=== PATIENT | female | born 1955 | race Two or more races ===

== ENCOUNTER 2017-08-24 00:05 | Inpatient (IN) | payer OTHER ==
[~2017-08-24] VITALS: Ht 160 cm; Wt 52.8 kg
[~2017-08-24 00:05] MED LIST: ASCO-317 PO; CAPE500T15 PO; CHOL400T26 PO; MAGN500C16 PO; ONDA8TAB6 PO; SERT25TA5 PO; SIMV20TA6 PO; THIO50TA PO; [UNRECOGNIZED DRUG - CODE] PO; [UNRECOGNIZED DRUG - OTHER] IM
--- NOTE | 2017-08-24 00:05 | NUR ---
"COUGH/FEVER; JUST FINISHED TAKING 2ND DOSE OF Z-PACK" W/ AUDIBLE CONGESTION. NO SOB NOTED WITH NO PAIN. VSS NAD WILL CONTINUE TO MONITOR FOR NAY CHANGES DURING THE SHIFT
[2017-08-24] MEDS ORDERED: IV NS 0.9% 1,000 ML BAG IV ONE (00:30)
[2017-08-24] MEDS ORDERED: MORPHINE SULFATE INJ 2 MG/ML DISP.SYRIN IV ONE (00:30)
[2017-08-24] MEDS ORDERED: ONDANSETRON HCL/PF 4 MG/2 ML VIAL IVP ONE (00:30)
--- NOTE | 2017-08-24 00:52 | NUR ---
BLOOD SENT TO LAB
[2017-08-24 01:03] LABS: BASOPHILS # (AUTO) 0.1 /CMM (0.0-0.2); BASOPHILS % (AUTO) 0.9 % (0.0-2.0); EOSINOPHILS % (AUTO) 0.3 % (0.0-6.0); HEMATOCRIT 30 % (33-45); HEMOGLOBIN 10.1 g/dL (11.5-14.8); LYMPHOCYTES % (AUTO) 16.8 % (20.0-44.0); MEAN CORPUSCULAR HEMOGLOBIN 35 PG (26.0-33.0); MEAN CORPUSCULAR HGB CONC 34 g/dl (31.0-36.0); MEAN CORPUSCULAR VOLUME 102 fL (82-100); MONOCYTES # (AUTO) 1.1 /CMM (0.1-1.30); MONOCYTES % (AUTO) 18.7 % (2.0-12.0); NEUTROPHILS # (AUTO) 3.6 /CMM (1.8-8.9); NEUTROPHILS % (AUTO) 63.3 % (43.0-81.0); PLATELET COUNT (AUTO) 54 /CMM (150-450); RED BLOOD CELL COUNT(AUTO) 2.91 MIL/uL (4.0-5.2); WHITE BLOOD COUNT (AUTO) 5.7 K/uL (4.3-11.0)
[2017-08-24 01:20] LABS: TROPONIN I 0.017 ng/mL (0.00-0.056)
[2017-08-24 01:21] LABS: LYMPHOCYTES % (MANUAL) 20 % (16-48); MONOCYTES % (MANUAL) 14 % (0-11.0); NEUTROPHILS % (MANUAL) 66 (42-76)
[2017-08-24 01:24] LABS: ALBUMIN 2.3 g/dL (3.4-5.0); BILIRUBIN,DIRECT 0.5 mg/dL (0.0-0.2); BILIRUBIN,TOTAL 1.1 mg/dL (0.2-1.0); CALCIUM, SERUM 9.4 mg/dL (8.5-10.1); CREATININE 0.9 mg/dL (0.6-1.3); POTASSIUM 3.7 mmol/L (3.5-5.1); TOTAL PROTEIN, SERUM 7.1 g/dL (6.4-8.2)
[2017-08-24] MEDS ORDERED: IV NS 0.9% 500 ML IV ONE (01:27)
[2017-08-24] MEDS ORDERED: CT SWABBABLE VALVE TRANS SET 1 EA INFUS.SET MC ONE (01:27)
[2017-08-24] MEDS ORDERED: IOHEXOL-350 100 ML VIAL IV ONE (01:27)
--- NOTE | 2017-08-24 01:46 | NUR ---
PT OFF TO CT SCAN
[2017-08-24] MEDS ORDERED: PIPERACILLIN /TAZOBACTAM 3.375 G in IV D5W 50 ML IV ONE (03:00)
[2017-08-24] MEDS ORDERED: PIPERACILLIN /TAZOBACTAM 3.375 G VIAL IV ONE (03:12)
--- NOTE | 2017-08-24 04:24 | NUR ---
TELE 323-2
--- NOTE | 2017-08-24 04:40 | NUR ---
GIVE REPORTS TO SRAVANTHI MAYEN.
[2017-08-24] MEDS ORDERED: Z GUARD REMEDY 2 OZ OINT TP PRN (05:00)
[2017-08-24] MEDS ORDERED: MORPHINE SULFATE INJ 2 MG/ML DISP.SYRIN IV PRN (05:00)
[2017-08-24] MEDS ORDERED: MAGNESIUM HYDROXIDE 30 ML UDC PO PRN (05:00)
[2017-08-24] MEDS ORDERED: ACETAMINOPHEN 325 MG TABLET PO PRN (05:00)
[2017-08-24] MEDS ORDERED: ONDANSETRON HCL/PF 4 MG/2 ML VIAL IVP PRN (05:00)
[2017-08-24] MEDS ORDERED: HYDROCODONE/APAP 5/325MG 1 EACH TABLET PO PRN (05:00)
[2017-08-24] MEDS ORDERED: MAG HYDROX/AL HYDROX/SIMETH 30 ML UDC PO PRN (05:00)
--- NOTE | 2017-08-24 05:01 | NUR ---
REPORT GIVEN TO FRIED Addendum: 08/24/17 at 0506 by MARKUS REPORT GIVEN TO MAYEN
[2017-08-24 05:30] VITALS: BP 120/70
[2017-08-24 05:43] VITALS: BP 120/70
[2017-08-24] MEDS ORDERED: AZITHROMYCIN 500 MG in IV D5W 250 ML IV SCH (06:00)
[2017-08-24] MEDS ORDERED: CEFTRIAXONE 1 G VIAL ONE (06:07)
[2017-08-24] MEDS: CEFTRIAXONE 1 G in IV D5W 50 ML IV SCH (06:30)
--- NOTE | 2017-08-24 07:30 | NUR ---
TELE/RN OPENING NOTE PATIENT IN BED AWAKE. ALERT AND ORIENTED X4. RESPIRATION REGULAR AND UNLABORED. DENIES SOB. PAIN AT THIS TIME. LFA G 22 PATENT. BED LOW AND LOCKED. SIDE RAILS UP X2. CALL LIGHT WITHIN REACH. WILL CONTINUE TO MONITOR.
[2017-08-24 08:00] VITALS: BP 137/79
--- NOTE | 2017-08-24 09:48 | NUR ---
TELE/RN NOTE ZITHROMAX NOT DELIVERED FROM PHARM YET. FOLLOW UP CALL TO PHARM IS DONE.
[2017-08-24] MEDS: AZITHROMYCIN 500 MG in IV D5W 250 ML IV SCH (11:24)
[2017-08-24 16:00] VITALS: BP 129/94
--- NOTE | 2017-08-24 18:04 | NUR ---
MS/RN CLOSING NOTE PATIENT ALERT AND ORIENTED X4. RESPIRATION REGULAR AND UNLABORED. DENIES SOB, PAIN AT THIS TIME. THE PATIENT IN NO APPARENT DISTRESS. ABLE TO AMBULATE WITH SUPERVISION. CONTINENT OF BOWEL AND BLADDER. LEFT CHEST PORT-A CATH WITH NO S/S INFECTION AND NO BLEEDING. LFA G 22 PATENT. BED LOW AND LOCKED. SIDE RAILS UP X2. VERBAL CUES PROVIDED TO KEEP SAFETY AWARENESS HIGH. ALL NEEDS ATTENDED AND ANTICIPATED. CALL LIGHT WITHIN REACH. WILL ENDORSE TO CLAIMS SUPERVISOR.
--- NOTE | 2017-08-24 19:25 | NUR ---
RN OPENING NOTES PT AWAKE AND RESTING IN BED. NO COMPLAINTS OF PAIN, DISTRESS OR SOB AT THIS TIME. PT HAS A LEFT CHEST JARETH CATH. PT ALSO HAS A LEFT FA #22 IV, INTACT AND PATENT. PT HAS A SCHEDULED US GUIDED THORACENTESIS IN THE MORNING. PT WILL BE NPO AFTER MIDNIGHT. PT HAS A LEFT FOREARM #22 IV, SL. SAFETY PRECAUTIONS IN PLACE. BED IN LOW, LOCKED POSITION, X2 SIDERAILS UP, CALL LIGHT WITHIN REACH. WILL CONTINUE TO MONITOR.
[2017-08-24 20:00] VITALS: BP 143/83
[2017-08-25] MEDS: CEFTRIAXONE 1 G in IV D5W 50 ML IV SCH (05:21)
--- NOTE | 2017-08-25 06:41 | NUR ---
RN OPENING NOTES PT AWAKE AND RESTING IN BED. NO COMPLAINTS OF PAIN, DISTRESS OR SOB OVERNIGHT. PT HAS A LEFT CHEST JARETH CATH. PT ALSO HAS A LEFT FA #22 IV, INTACT AND PATENT. PT HAS A SCHEDULED US GUIDED THORACENTESIS IN THE MORNING. PT HAS A LEFT FOREARM #22 IV, SL. SAFETY PRECAUTIONS IN PLACE. BED IN LOW, LOCKED POSITION, X2 SIDE RAILS UP, CALL LIGHT WITHIN REACH. WILL ENDORSE TO DAY SHIFT NURSE FOR CONTINUITY OF CARE. Addendum: 08/25/17 at 0643 by COLTEN OCONNOR RN MISTYPED RN CLOSING NOTES
[2017-08-25 07:44] LABS: BASOPHILS % (AUTO) 0.4 % (0.0-2.0); EOSINOPHILS % (AUTO) 0.7 % (0.0-6.0); HEMATOCRIT 27 % (33-45); HEMOGLOBIN 9.4 g/dL (11.5-14.8); LYMPHOCYTES # (AUTO) 0.6 /CMM (0.8-4.8); LYMPHOCYTES % (AUTO) 15.5 % (20.0-44.0); MEAN CORPUSCULAR HEMOGLOBIN 35 PG (26.0-33.0); MEAN CORPUSCULAR HGB CONC 35 g/dl (31.0-36.0); MEAN CORPUSCULAR VOLUME 101 fL (82-100); MONOCYTES # (AUTO) 0.7 /CMM (0.1-1.30); MONOCYTES % (AUTO) 18.1 % (2.0-12.0); NEUTROPHILS # (AUTO) 2.4 /CMM (1.8-8.9); NEUTROPHILS % (AUTO) 65.3 % (43.0-81.0); RDW COEFFICIENT OF VARIATION 17.8 (11.5-15.0); WHITE BLOOD COUNT (AUTO) 3.7 K/uL (4.3-11.0)
[2017-08-25 07:59] LABS: PLATELET COUNT (AUTO) 41 /CMM (150-450)
[2017-08-25 08:00] VITALS: BP 133/91
[2017-08-25 08:03] LABS: BILIRUBIN,TOTAL 0.9 mg/dL (0.2-1.0); CALCIUM, SERUM 9.1 mg/dL (8.5-10.1); CREATININE 0.7 mg/dL (0.6-1.3); MAGNESIUM 1.9 mg/dL (1.8-2.4); PHOSPHORUS 3.8 mg/dL (2.5-4.9); POTASSIUM 3.7 mmol/L (3.5-5.1); TOTAL PROTEIN, SERUM 6.6 g/dL (6.4-8.2)
[2017-08-25 08:07] LABS: THYROID STIMULATING HORMONE 2.927 uIU/mL (0.358-3.74)
--- NOTE | 2017-08-25 08:30 | NUR ---
U/S GUIDED THORACENTESIS HOLD BECAUSE PATIENT'S PLT COUNT IS 41 , AND THERE IS NO INR RESULT FOR THE PATIENT YET.
[2017-08-25 09:27] LABS: EOSINOPHILS % (MANUAL) 1 % (0-4); LYMPHOCYTES % (MANUAL) 15 % (16-48); MONOCYTES % (MANUAL) 14 % (0-11.0); NEUTROPHILS % (MANUAL) 70 (42-76)
[2017-08-25] MEDS: AZITHROMYCIN 500 MG in IV D5W 250 ML IV SCH (10:00)
--- NOTE | 2017-08-25 12:00 | NUR ---
m/s child care centre director: notes received pt in bed resting comfortable with no distress noted. pt for abdominal us and thoracentesis procedure today. pt has been npo since midnight per report. instructed to call for assistance. will continue to monitor.
--- NOTE | 2017-08-25 13:00 | NUR ---
m/s green chain worker: md visit seen and examined by dr. cabrera at this time. pt for thoracentesis, pending inr result. pt aware. npo has been lifted, pt can eat now due to abdominal us cancelled. instructed to call for assistance. will monitor.
--- NOTE | 2017-08-25 14:15 | NUR ---
m/s matrix worker: notes received order from dr. cabrera to Discharge pt in 4 hours after large voulme thoracentesis if feeling well and, able to ambulate. f/u made to lab re: inr pending result, spoke to vinay, stated, "give it a few more, it's still running in the machine."
[2017-08-25 14:22] LABS: INR 0.97 (0.87-1.13)
--- NOTE | 2017-08-25 14:31 | NUR ---
m/s maintenance service supervisor: notes inr resulted and dr. otero (radiologist) notified and made aware.
[2017-08-25 16:00] VITALS: BP 138/84
[2017-08-25] MEDS ORDERED: FUROSEMIDE 20 MG/2 ML VIAL IV ONE (16:00)
--- NOTE | 2017-08-25 17:00 | NUR ---
m/s insurance attorney: notes thoracentesis completed with 1250 of serosanguineous fluid collected and bottles sent to lab for test.
--- NOTE | 2017-08-25 18:15 | NUR ---
cxr resulted: 1. Significantly decreased left pleural effusion, status post interval thoracentesis. Questionable trace left apical pneumothorax. Short interval follow-up chest x-rays is recommended. 2. Persistent trace bilateral pleural effusions.and dr. cabrera was called by radiologist with order to do another xray at 2100 and to call him with result oni. pt made aware.
--- NOTE | 2017-08-25 18:58 | NUR ---
m/s master data analyst: notes received a call from dr. cabrera to do stat cxr at 2000 instead of 2100. pt made aware. order carried out and acknowledged. pt for d'c home tonight if feeling better. pt aware.
--- NOTE | 2017-08-25 19:15 | NUR ---
m/s shipbuilding draftsperson: notes report given to shoshana (rn) for continuity of care. pending repeat chest x-ray at 1999.
--- NOTE | 2017-08-25 19:30 | NUR ---
MS RN OPENING NOTES RECEIVED PT IN BED AWAKE, ALERT, VERBALLY RESPONSIVE. ON ROOM AIR, RESPIRATIONS EVEN, UNLABORED, NO APPARENT DISTRESS NOTED.. DENIES ANY PAIN OR DISCOMFORT AT THIS TIME. IV SITE LT FA INTACT, PATENT. CALL LIGHT WITHIN REACH. AWAITING FOR CHEST X RAY TO BE TAKEN. ATTENDED ALL NEEDS.WILL CONTINUE TO MONITOR ACCORDINGLY.
[2017-08-25 20:00] VITALS: BP 131/83
--- NOTE | 2017-08-25 21:00 | NUR ---
MS MAJOR GENERAL NOTE PT DISCHARGED IN STABLE CONDITION ALERT, AWAKE, VERBALLY RESPONSIVE, ON ROOM AIR, RESPIRATION EVEN, UNLABORED, NO APPARENT DISTRESS NOTED.DENIES ANY PAIN OR DISCOMFORT AT THIS TIME. DISCHARGE INSTRUCTIONS GIVEN TO THE PT, VERBALIZED UNDERSTANDING. IV ACCESS REMOVED,PT TOLERATED WELL, NO BLEEDING NOTED. ATTENDED ALL NEEDS. CHARGE NURSE NOTIFIED, PT LEFT THE HOSPITAL IN STABLE CONDITION ACCOMPANIED BY RN AND FAMILY MEMBERS. ATTENDED ALL PT NEEDS. VS 130/83 P 88, T 98.8, RR 18 O2 SAT 97%.
--- NOTE | 2017-08-25 21:30 | NUR ---
MS RN NOTES RECEIVED RESULT FROM CHEST XRAY- BILATERAL PLEURAL EFFUSION, LT PORT A CATH WITHOUT VISIBLE PNEUMOTHORAX. RELAYED RESULTS TO ISAIAS PATTON NP, OK TO DISCHARGE THE PT. PT ALERT, AWAKE, VERBALLY RESPONSIVE, INSISTING TO BE DISCHARGED.ATTENDED ALL NEEDS.
== END 2017-08-25 22:05 | disposition home or self-care (01) | DRG 597 ==
LOC: ER 00:11 → TELE 04:36 → MED 09:17
PROVIDERS: ADMIT Nurse Practitioner Acute Care; ATTEND Nurse Practitioner Acute Care
PROC: 0W9B3ZZ Drainage of Left Pleural Cavity, Percutaneous Approach (ICD-10-PCS; principal; 2017-08-24)
DX: C50.911 Malignant neoplasm of unspecified site of right female breast (principal); I50.33 Acute on chronic diastolic (congestive) heart failure; J91.0 Malignant pleural effusion; C78.7 Secondary malignant neoplasm of liver and intrahepatic bile duct; C78.01 Secondary malignant neoplasm of right lung; D69.6 Thrombocytopenia, unspecified; E87.2 Acidosis; C78.02 Secondary malignant neoplasm of left lung; C79.89 Secondary malignant neoplasm of other specified sites; J98.11 Atelectasis; C92.10 Chronic myeloid leukemia, BCR/ABL-positive, not having achieved remission; D63.8 Anemia in other chronic diseases classified elsewhere; R74.0 Nonspecific elevation of levels of transaminase and lactic acid dehydrogenase [LDH]; Z90.49 Acquired absence of other specified parts of digestive tract; Z90.710 Acquired absence of both cervix and uterus; Z96.651 Presence of right artificial knee joint; Z79.899 Other long term (current) drug therapy
CPT/HCPCS: 36415; 71045-TC; 76942-TC; 80048-TC; 80053-TC; 80061-TC; 80076-TC; 83605-TC; 83615-TC; 83735-TC; 83880; 84100-TC; 84155-TC; 84443-TC; 84484-TC; 85025-TC; 85610-TC; 87040-TC; 87070-TC; 87081-TC; 87102-TC; 89051-TC; A4606; J0456; J0696; J1940; J2543; J7030; J7040; J7060; Q9967; Z7610